=== PATIENT | female | born 1955 | race Native Hawaiian/Other Pacific Islander ===

== ENCOUNTER 2017-05-09 16:53 | Emergency (ER) | payer OTHER ==
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
[2017-05-09 17:05] VITALS: BMI 23.8
[2017-05-09 17:53] VITALS: BP 137/92; PULSE 88; RESP 18; TEMP 98.1; O2SAT 99
== END 2017-05-09 17:58 | disposition left against medical advice (07) ==
LOC: ED 16:53
DX: Z04.1 Encounter for examination and observation following transport accident (principal)